=== PATIENT | male | born 1995 | race Caucasian/White ===

== ENCOUNTER 2018-04-01 07:37 | Emergency (ER) | payer SELFPAY ==
--- NOTE | 2018-04-01 09:32 | RAD ---
LEFT KNEE 4 VIEWS: CLINICAL HISTORY: Left knee pain, injury. FINDINGS: There is no fracture or dislocation. No joint capsular distention. IMPRESSION: No acute osseous abnormality. POS: [facility]
== END 2018-04-01 10:49 | disposition home or self-care (01) ==
LOC: ERS 07:37
DX: M25.562 Pain in left knee (principal)
CPT/HCPCS: J7620